=== PATIENT | female | born 1955 | race Caucasian/White ===

== ENCOUNTER → 2020-08-04 | Outpatient (CLI) | payer OTHER | LOC: M WHC 07:25 | PROVIDERS: ATTEND Nurse Practitioner Family | DX: Z12.31 Encounter for screening mammogram for malignant neoplasm of breast (principal) ==

== ENCOUNTER → 2021-09-05 | Outpatient (CLI) | payer OTHER | LOC: M WHC 10:13 | PROVIDERS: ATTEND Nurse Practitioner Family ==

== ENCOUNTER 2022-03-10 14:02 | Emergency (ER) | payer OTHER ==
[~2022-03-10] VITALS: Ht 162.6 cm; Wt 98.5 kg
[2022-03-10 16:08] LABS: BASO # 0.1 10^3/uL (0.0-0.2); BASO % 0.7 % (0.0-1.0); EOS # 0.3 10^3/uL (0.0-0.5); EOS % 2.9 % (0.0-3.0); HEMATOCRIT 45.1 % (36.0-47.0); HEMOGLOBIN 14.9 g/dl (12.0-15.5); LYMPH # 3.1 10^3/uL (1.5-5.0); LYMPH % 34.6 % (24.0-44.0); MEAN CORPUSCULAR HEMOGLOBIN 28.8 pg (27.0-33.0); MEAN CORPUSCULAR VOLUME 87.2 fl (80.0-96.0); MONO # 0.8 10^3/uL (0.0-0.8); MONO % 8.9 % (2.0-8.0); NEUTROPHILS # 4.7 10^3/uL (1.5-8.5); NEUTROPHILS % 52.7 % (36.0-66.0); PLATELET COUNT, AUTOMATED 222 10^3/uL (150-450); RED BLOOD COUNT 5.17 10^6/uL (4.00-5.40); WHITE BLOOD COUNT 8.9 10^3/uL (4.0-10.0)
[2022-03-10] MEDS ORDERED: KETOROLAC 30 MG/ML 1ML VIAL IV ONE (16:10)
[2022-03-10 16:34] LABS: BILIRUBIN,DIRECT 0.2 MG/DL (<0.4)
[2022-03-10 16:41] LABS: RSV AMPLIFICATION NEGATIVE (NEGATIVE)
[2022-03-10 16:42] LABS: ALBUMIN 4.4 G/DL (3.2-5.2); ALKALINE PHOSPHATASE 116 U/L (46-116); ALT/SGPT 22 U/L (7.0-40); AST/SGOT 35 U/L (<34); BILIRUBIN,TOTAL 0.7 MG/DL (0.3-1.2); BLOOD UREA NITROGEN 13 MG/DL (9-23); CALCIUM LEVEL 9.1 MG/DL (8.3-10.6); CARBON DIOXIDE LEVEL 20 MMOL/L (20-31); CHLORIDE LEVEL 107 MMOL/L (98-107); CREATININE FOR GFR 0.63 MG/DL (0.55-1.30); GLOMERULAR FILTRATION RATE > 60.0 (>45); GLUCOSE, FASTING 91 MG/DL (74-106); LIPASE 40 U/L (12-53); POTASSIUM SERUM 5.2 MMOL/L (3.5-5.1); SODIUM LEVEL 140 MMOL/L (136-145); TOTAL PROTEIN 7.5 G/DL (5.7-8.2)
[2022-03-10] MEDS ORDERED: ISOVUE-370 76% 100ML VIAL As Ordered ONE (16:46)
[2022-03-10 18:14] VITALS: BP 140/90
== END 2022-03-10 18:24 | disposition home or self-care (01) ==
LOC: M ED 14:02
DX: R10.9 Unspecified abdominal pain (principal); E66.9 Obesity, unspecified; E03.9 Hypothyroidism, unspecified; Z84.1 Family history of disorders of kidney and ureter; Z83.79 Family history of other diseases of the digestive system; Z88.2 Allergy status to sulfonamides
CPT/HCPCS: 74177; 80048; 80076; 83690; 85025; 87631; 96374; 99284; J1885; Q9967

== ENCOUNTER → 2022-09-07 | Outpatient (CLI) | payer MEDICARE, OTHER ==
[~2022-09-07] MED LIST: SYNT100T PO; VITMTA PO
== END ==
LOC: M WHC 14:20
PROVIDERS: ATTEND Nurse Practitioner Family
DX: Z12.31 Encounter for screening mammogram for malignant neoplasm of breast (principal); Z98.890 Other specified postprocedural states

== ENCOUNTER 2022-09-13 06:58 | Day surgery (SDC) | payer MEDICARE, OTHER ==
[~2022-09-13] VITALS: Ht 162.6 cm; Wt 94.8 kg
[2022-09-13] MEDS ORDERED: LIDOCAINE W/EPINEPHRINE 1% 20ML VIAL XX ONE (07:50)
[2022-09-13] MEDS ORDERED: SODIUM BICARBONATE 8.4% INJ 50MEQ 50ML VIAL XX ONE (07:50)
[2022-09-13 11:30] VITALS: BP 174/89; TEMP 98; O2SAT 96
== END 2022-09-13 11:39 | disposition home or self-care (01) ==
LOC: M SDC 06:58
PROVIDERS: ATTEND Orthopaedic Surgery Hand Surgery
DX: M65.341 Trigger finger, right ring finger (principal); Z88.2 Allergy status to sulfonamides

== ENCOUNTER → 2023-05-10 | Outpatient (CLI) | payer MEDICARE, OTHER | LOC: M RAD 10:31 | PROVIDERS: ATTEND Nurse Practitioner Family | DX: M71.22 Synovial cyst of popliteal space [Baker], left knee (principal); R60.0 Localized edema ==

== ENCOUNTER → 2023-09-17 | Outpatient (CLI) | payer OTHER, MEDICARE | LOC: M WHC 12:29 | PROVIDERS: ATTEND Nurse Practitioner Family | DX: Z12.31 Encounter for screening mammogram for malignant neoplasm of breast (principal) ==

== ENCOUNTER 2023-12-13 13:27 | Emergency (ER) | payer OTHER, MEDICARE ==
[~2023-12-13] VITALS: Ht 162.6 cm; Wt 95.2 kg
[2023-12-13] MEDS: ACETAMINOPHEN TAB 650MG DOSE (2X325MG) PO ONE (15:29)
[2023-12-13] MEDS: KETOROLAC 30 MG/ML 1ML VIAL IM ONE (15:29)
[2023-12-13] MEDS: ONDANSETRON 4MG ORAL DISINTEGRATING TAB PO ONE (15:29)
[2023-12-13] MEDS ORDERED: ONDA-282 PO (16:09)
[2023-12-13] MEDS ORDERED: KETO10TAB PO (16:09)
[2023-12-13 16:20] VITALS: TEMP 99; O2SAT 99
[2023-12-13 16:26] VITALS: BP 138/92
== END 2023-12-13 16:40 | disposition home or self-care (01) ==
LOC: M ED 13:27
DX: G43.909 Migraine, unspecified, not intractable, without status migrainosus (principal); E03.9 Hypothyroidism, unspecified; Z79.899 Other long term (current) drug therapy; Z88.2 Allergy status to sulfonamides
CPT/HCPCS: 96372; 99283; J1885

== ENCOUNTER 2023-12-14 10:47 | Emergency (ER) | payer MEDICARE, OTHER ==
[~2023-12-14] VITALS: Ht 162.6 cm; Wt 94.9 kg
[~2023-12-14 10:47] MED LIST changes: +KETO10TAB PO; +ONDA-282 PO
[2023-12-14] MEDS: KETOROLAC 60MG 2ML VIAL IM ONE (14:11)
[2023-12-14 16:42] VITALS: BP 177/80; TEMP 97.7; O2SAT 96
== END 2023-12-14 16:45 | disposition home or self-care (01) ==
LOC: M ED 10:47
DX: R51.9 Headache, unspecified (principal); H92.03 Otalgia, bilateral; E03.9 Hypothyroidism, unspecified; Z79.899 Other long term (current) drug therapy; Z88.2 Allergy status to sulfonamides
CPT/HCPCS: 70450; 96372; 99283; J1885

== ENCOUNTER → 2024-12-08 | Outpatient (CLI) | payer OTHER, MEDICARE | LOC: M WHC 09:02 | PROVIDERS: ATTEND Registered Nurse | DX: M81.0 Age-related osteoporosis without current pathological fracture (principal) ==